=== PATIENT | female | born 1990 | race Caucasian/White ===

== ENCOUNTER 2019-12-22 17:22 | Emergency (ER) | payer BC, OTHER ==
[~2019-12-22] VITALS: Ht 165.1 cm; Wt 78.9 kg
[2019-12-22 17:23] VITALS: Ht 165.1 cm; Wt 78.9 kg
[2019-12-22 18:32] VITALS: BP 126/92
== END 2019-12-22 18:32 | disposition home or self-care (01) ==
LOC: ED 17:22
DX: J06.9 Acute upper respiratory infection, unspecified (principal)
CPT/HCPCS: U0002